=== PATIENT | female | born 1995 | race Caucasian/White ===

== ENCOUNTER 2016-08-19 19:59 | Emergency (ER) | payer OTHER ==
[~2016-08-19] VITALS: Ht 160 cm; Wt 54.4 kg
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
[2016-08-19 22:37] LABS: APPEARANCE,URINE SL CLOUDY (CLEAR); BILIRUBIN,URINE 1+ (NEGATIVE); BLOOD, URINE TRACE-INTA Ery/uL (NEGATIVE); COLOR,URINE YELLOW (YELLOW); KETONES,URINE NEGATIVE (NEGATIVE); LEUKOCYTE ESTERASE ,URINE TRACE (NEGATIVE); NITRITE, URINE NEGATIVE (NEGATIVE); PROTEIN,URINE 1+ mg/dl (NEGATIVE); UGLUCOSE TRACE mg/dL (NEGATIVE); UROBILINOGEN,URINE 0.2 EU/dL (0.2)
[2016-08-19 22:39] LABS: PREGNANCY TEST URINE QUAL NEGATIVE (NEGATIVE)
[2016-08-19 22:43] LABS: ADD URINE CULTURE NO; BACTERIA,URINE None seen /HPF (None Seen); MUCUS,URINE Moderate /LPF (None Seen); RBC,URINE 0-3 /HPF (0-2); SQUAMOUS EPITHELIAL CELL,UR Few /HPF (None Seen); WBC,URINE 0-5 /HPF (0-3)
--- NOTE | 2016-08-19 22:54 | NUR ---
DR. ROUSE AT BEDSIDE FOR PELVIC EXAM. MADINA AT BEDSIDE
--- NOTE | 2016-08-20 00:12 | NUR ---
ULTRASOUND AT BEDSIDE
[2016-08-20] MEDS ORDERED: KETOROLAC TROMETHAMINE INJ 60 MG/2 ML VIAL IM ONE ×2 (00:30)
[2016-08-20 01:04] VITALS: BP 126/68
--- NOTE | 2016-08-20 01:04 | NUR ---
Patient discharged to home in stable condition. Written and verbal after care instructions given. Patient verbalizes understanding of instruction. ambulatory with a steady gait
== END 2016-08-20 01:05 | disposition home or self-care (01) ==
LOC: ER 20:12
DX: R10.2 Pelvic and perineal pain (principal); Z88.0 Allergy status to penicillin; Z88.2 Allergy status to sulfonamides
CPT/HCPCS: 76856; 81001; 84703; 87070; 87110; 87210; 96372; 99285; A4606; J1885; Z7610; 81000-TC; 87081-TC

== ENCOUNTER 2016-12-22 02:29 | Emergency (ER) | payer SELFPAY ==
[~2016-12-22] VITALS: Ht 160 cm; Wt 52.2 kg
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
[2016-12-22] MEDS ORDERED: ONDANSETRON HCL/PF 4 MG/2 ML VIAL ONE (02:43)
[2016-12-22] MEDS ORDERED: ACTIVATED CHARCOAL 25 GM/120 ML TUBE ONE ×2 (02:46→02:53)
[2016-12-22] MEDS ORDERED: ONDANSETRON HCL/PF 4 MG/2 ML VIAL IV ONE (03:00)
[2016-12-22] MEDS ORDERED: ACTIVATED CHARCOAL 25 GM/120 ML TUBE PO ONE (03:00)
--- NOTE | 2016-12-22 03:02 | NUR ---
medicated patient as ordered by Dr Parisi.
[2016-12-22 03:03] LABS: APPEARANCE,URINE CLEAR (CLEAR); BILIRUBIN,URINE NEGATIVE (NEGATIVE); BLOOD, URINE NEGATIVE Ery/uL (NEGATIVE); COLOR,URINE YELLOW (YELLOW); KETONES,URINE NEGATIVE (NEGATIVE); LEUKOCYTE ESTERASE ,URINE TRACE (NEGATIVE); NITRITE, URINE NEGATIVE (NEGATIVE); PROTEIN,URINE NEGATIVE (NEGATIVE); UGLUCOSE NEGATIVE (NEGATIVE); UROBILINOGEN,URINE 0.2 EU/dL (0.2)
--- NOTE | 2016-12-22 03:11 | NUR ---
BOYFRIEND AT BEDSIDE. WILL CONTINUE TO MONITOR.
[2016-12-22 03:12] LABS: BASOPHILS % (AUTO) 0.3 % (0.0-2.0); EOSINOPHILS # (AUTO) 0.1 /CMM (0.0-0.7); EOSINOPHILS % (AUTO) 1.2 % (0.0-6.0); HEMATOCRIT 40 % (33-45); HEMOGLOBIN 13.3 g/dL (11.5-14.8); LYMPHOCYTES # (AUTO) 2.2 /CMM (0.8-4.8); LYMPHOCYTES % (AUTO) 29.8 % (20.0-44.0); MEAN CORPUSCULAR HEMOGLOBIN 32 PG (26.0-33.0); MEAN CORPUSCULAR HGB CONC 34 g/dl (31.0-36.0); MEAN CORPUSCULAR VOLUME 96 fL (82-100); MONOCYTES # (AUTO) 0.6 /CMM (0.1-1.30); MONOCYTES % (AUTO) 8.5 % (2.0-12.0); NEUTROPHILS # (AUTO) 4.4 /CMM (1.8-8.9); NEUTROPHILS % (AUTO) 60.2 % (43.0-81.0); PLATELET COUNT (AUTO) 265 /CMM (150-450); RDW COEFFICIENT OF VARIATION 13.5 (11.5-15.0); RED BLOOD CELL COUNT(AUTO) 4.14 MIL/uL (4.0-5.2); WHITE BLOOD COUNT (AUTO) 7.4 K/uL (4.3-11.0)
[2016-12-22 03:13] LABS: CALCIUM, SERUM 8.8 mg/dL (8.5-10.1); CREATININE 0.6 mg/dL (0.6-1.3); POTASSIUM 3.6 mmol/L (3.5-5.1)
[2016-12-22 03:18] LABS: ALBUMIN 3.9 g/dL (3.4-5.0); BILIRUBIN,DIRECT 0.1 mg/dL (0.0-0.2); BILIRUBIN,TOTAL 0.2 mg/dL (0.2-1.0); SALICYLATE 0.8 mg/dL (2.8-20.0); TOTAL PROTEIN, SERUM 7.3 g/dL (6.4-8.2)
[2016-12-22 03:30] LABS: BACTERIA,URINE None seen /HPF (None Seen); RBC,URINE 0-2 /HPF (0-2); SQUAMOUS EPITHELIAL CELL,UR Rare /HPF (None Seen); WBC,URINE 0-2 /HPF (0-3)
--- NOTE | 2016-12-22 04:30 | NUR ---
patient is sleeping comfortably at this time. nad noted. vss.
--- NOTE | 2016-12-22 04:52 | NUR ---
Spoke with Rosa from poison control, call number for any question is [phone].
--- NOTE | 2016-12-22 08:01 | NUR ---
PT AWAKE, ALERT AND ORIENTED. VSS. PARTNER REMAINS AT BS.
--- NOTE | 2016-12-22 08:30 | NUR ---
YASIR CHENG CALLED FOR EVAL [phone]. ETA ~ 60 MIN OR LESS
--- NOTE | 2016-12-22 08:35 | NUR ---
PROVIDED PT WITH FOOD TRAY.
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
--- NOTE | 2016-12-22 10:00 | NUR ---
IV removed. Catheter intact and site benign. Pressure and 4x4 applied to site. No bleeding noted.
--- NOTE | 2016-12-22 10:16 | NUR ---
Patient discharged to home in stable condition. Written and verbal after care instructions given. Patient verbalizes understanding of instruction.
--- NOTE | 2016-12-22 10:18 | NUR ---
RECEIVED A CALL FROM POISON CONTROL AND SPOKE TO ZACHARY FOR UPDATE.
[2016-12-22 10:30] VITALS: BP 124/79
== END 2016-12-22 10:32 | disposition home or self-care (01) ==
LOC: ER 02:31
DX: T42.4X1A Poisoning by benzodiazepines, accidental (unintentional), initial encounter (principal); F10.129 Alcohol abuse with intoxication, unspecified; Z88.0 Allergy status to penicillin; Z88.2 Allergy status to sulfonamides; Y92.89 Other specified places as the place of occurrence of the external cause
CPT/HCPCS: 36415; 80048; 80076; 80305; 80329; 81001; 82962; 84703; 85025; 93005; 96374; 99285; A4606; G0480 ×2; J2405; Z7610; 81000-TC

== ENCOUNTER 2017-02-05 18:44 | Emergency (ER) | payer OTHER ==
[~2017-02-05] VITALS: Ht 165.1 cm; Wt 52.2 kg
--- NOTE | 2017-02-05 19:00 | NUR ---
TO BED 17 A 21 YO FEMALE BB SELF FOR VAGINAL PAIN X 3 DAYS AND DISCHARGE SINCE THIS AM. PATIENT IS AAOX4, NAD NOTED. VSS. AFEBRILE. COMFORT MEASURES RENDERED.
--- NOTE | 2017-02-05 20:06 | NUR ---
URINE COLLECTED AND SENT TO LAB
[2017-02-05 20:10] LABS: APPEARANCE,URINE Cloudy (CLEAR); BILIRUBIN,URINE Negative (NEGATIVE); BLOOD, URINE Negative Ery/uL (NEGATIVE); COLOR,URINE Yellow (YELLOW); KETONES,URINE Negative (NEGATIVE); LEUKOCYTE ESTERASE ,URINE Small (NEGATIVE); NITRITE, URINE Negative (NEGATIVE); PH,URINE 8.5 (5.0-8.0); PROTEIN,URINE Negative (NEGATIVE); UGLUCOSE Negative (NEGATIVE)
--- NOTE | 2017-02-05 20:20 | NUR ---
Dr Hope at bedside for pelvic exam.
[2017-02-05 20:22] LABS: BACTERIA,URINE None seen /HPF (None Seen); RBC,URINE NONE SEEN /HPF (0-2); SQUAMOUS EPITHELIAL CELL,UR Moderate /HPF (None Seen); URINE AMORPHOUS PHOSPHATES Many /HPF (None Seen); WBC,URINE NONE SEEN /HPF (0-3)
--- NOTE | 2017-02-05 21:35 | NUR ---
Patient discharged to home in stable condition. Written and verbal after care instructions given. Patient verbalizes understanding of instruction. Patient is ambulatory with a steady gait. No further complaints.
[2017-02-05 21:36] VITALS: BP 126/75
== END 2017-02-05 21:36 | disposition home or self-care (01) ==
LOC: ER 18:45
DX: N76.0 Acute vaginitis (principal); F41.9 Anxiety disorder, unspecified; F32.9 Major depressive disorder, single episode, unspecified; Z88.0 Allergy status to penicillin; Z88.2 Allergy status to sulfonamides
CPT/HCPCS: 81001; 87077; 87086; 87106; 87210; 87491; 87591; 99284; A4606; Z7610; 81000-TC

== ENCOUNTER 2017-06-28 03:18 | Emergency (ER) | payer OTHER ==
[~2017-06-28] VITALS: Ht 160 cm; Wt 57.2 kg
[2017-06-28 03:34] VITALS: BP 123/76
== END 2017-06-28 04:34 | disposition home or self-care (01) ==
LOC: ER 03:20
DX: F19.10 Other psychoactive substance abuse, uncomplicated (principal); F32.9 Major depressive disorder, single episode, unspecified; F41.9 Anxiety disorder, unspecified; Z88.0 Allergy status to penicillin; Z88.2 Allergy status to sulfonamides; F10.10 Alcohol abuse, uncomplicated
CPT/HCPCS: 99283; A4606; Z7610

== ENCOUNTER 2019-02-13 10:27 | Emergency (ER) | payer OTHER ==
[~2019-02-13] VITALS: Ht 160 cm; Wt 56.7 kg
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
--- NOTE | 2019-02-13 11:11 | NUR ---
DR WRIGHT AT BEDSIDE
[2019-02-13] MEDS ORDERED: IBUPROFEN 600 MG TABLET PO ONE (11:26)
[2019-02-13] MEDS ORDERED: ACETAMINOPHEN ES 500 MG TABLET ONE (11:26)
[2019-02-13] MEDS: IBUPROFEN 600 MG TABLET PO ONE (11:28)
[2019-02-13] MEDS: ACETAMINOPHEN ES 500 MG TABLET PO ONE (11:28)
--- NOTE | 2019-02-13 11:28 | NUR ---
DOWN FILLER AT BEDSIDE
[2019-02-13 12:09] VITALS: BP 117/78
--- NOTE | 2019-02-13 12:09 | NUR ---
Patient discharged to home in stable condition. Written and verbal after care instructions given. Patient verbalizes understanding of instruction.
== END 2019-02-13 12:10 | disposition home or self-care (01) ==
LOC: ER 10:27
DX: S43.101A Unspecified dislocation of right acromioclavicular joint, initial encounter (principal); S80.12XA Contusion of left lower leg, initial encounter; F41.9 Anxiety disorder, unspecified; F32.9 Major depressive disorder, single episode, unspecified; Z88.0 Allergy status to penicillin; Z88.2 Allergy status to sulfonamides; V19.9XXA Pedal cyclist (driver) (passenger) injured in unspecified traffic accident, initial encounter; Y93.55 Activity, bike riding; Y92.89 Other specified places as the place of occurrence of the external cause; Y99.8 Other external cause status
CPT/HCPCS: 73030-TC; 73590-TC; 84703-TC